=== PATIENT | male | born 1980 | race Two or more races ===

== ENCOUNTER 2017-10-29 16:53 | Inpatient (IN) | payer OTHER ==
--- NOTE | 2017-10-29 17:55 | EDM.PDOC ---
Addendum entered and electronically signed by Laith Tian MD 10/29/17 22 :05: After the discharge was prepared, the patient continued to vomit and complain of pain. He asked if he could be admitted for control of his symptoms. He is aware that we do not have a urologist on staff at this facility. Case discussed with Dr. Estevez at 22:02. She accepts the patient for admission to the Med-Surg floor, on telemetry. Original Note: <aLith Tian - Last Filed: 10/29/17 20:59> ED HPI GENERAL MEDICAL PROBLEM - General Chief Complaint: Abdominal Pain Stated Complaint: ABDOMINAL PAIN Time Seen by Provider: 10/29/17 17:55 - Related Data Allergies Allergy/AdvReac Type Severity Reaction Status Date / Time No Known Allergies Allergy Verified 10/29/17 23:54 Home Meds: Home Meds Tamsulosin HCl [Flomax] 1 tab PO QPM PRN #5 cap.er.24h 10/29/17 [Rx] Course - Vital Signs Last Recorded V/S: Last Vital Signs Temp 37.0 C 10/29/17 17:18 Pulse 82 10/29/17 17:18 Resp 16 10/29/17 17:18 BP 152/95 H 10/29/17 17:18 Pulse Ox 99 10/29/17 17:18 - Orders/Labs/Meds Orders: Active Orders 24 hr Category Date Time Status Strain Urine [RC] ASDIRECTED Care 10/29/17 20:50 Active Abdomen 1V Flat [CR] Stat Exams 10/29/17 18:01 Taken Dextrose 5%-0.9% NaCl [Dextrose 5%-Normal Saline] 1,000 Med 10/29/17 18:00 Active ml IV ASDIRECTED Sodium Chloride 0.9% [Normal Saline] 1,000 ml Med 10/29/17 22:15 Active IV ASDIRECTED Medication Orders Acetaminophen (Tylenol) 650 mg PO Q6H PRN PRN Reason: Pain/Fever Hydrocodone Bitart/Acetaminophen (Jerome 325-5 Mg) 1 tab PO Q6H PRN PRN Reason: Pain Enoxaparin Sodium (Lovenox) 40 mg SUBCUT DAILY [place] Hydromorphone HCl (Dilaudid) 1 mg IVPUSH Q4H PRN PRN Reason: Pain Dextrose/Sodium Chloride (Dextrose 5%-Normal Saline) 1,000 mls @ 999 mls/hr IV ASDIRECTED [place] Last Admin: 10/29/17 18:08 Dose: 999 mls/hr Sodium Chloride (Normal Saline) 1,000 mls @ 150 mls/hr IV ASDIRECTED [place] Last Admin: 10/30/17 04:09 Dose: 150 mls/hr Infusion: 10/30/17 04:09 Dose: 150 mls/hr Admin: 10/29/17 22:21 Dose: 150 mls/hr Sodium Chloride (Normal Saline) 1,000 mls @ 150 mls/hr IV ASDIRECTED [facility] Promethazine HCl 12.5 mg/ (Sodium Chloride) 50.5 mls @ 100 mls/hr IV Q6H [facility] Last Admin: 10/30/17 06:22 Dose: 100 mls/hr Infusion: 10/30/17 01:01 Dose: 100 mls/hr Admin: 10/30/17 00:30 Dose: 100 mls/hr Ketorolac Tromethamine (Toradol) 15 mg IVPUSH Q6H [facility] Stop: 10/31/17 18:02 Last Admin: 10/30/17 06:22 Dose: 15 mg Admin: 10/30/17 00:30 Dose: 15 mg Ondansetron HCl (Zofran) 4 mg IVPUSH Q8H PRN PRN Reason: Nausea Temazepam (Restoril) 15 mg PO BEDTIME PRN PRN Reason: Sleep Labs: Laboratory Tests 10/29/17 10/29/17 10/29/17 Range/Units 17:30 17:30 17:30 WBC 11.98 H (4.23-9.07) K/mm3 RBC 5.58 (4.63-6.08) M/mm3 Hgb 16.4 (13.7-17.5) gm/L Hct 45.8 (40.1-51.0) % MCV 82.1 (79.0-92.2) fl MCH 29.4 (25.7-32.2) pg MCHC 35.8 H (32.2-35.5) g/dl RDW Std Deviation 39.9 (35.1-43.9) fL Plt Count 247 (163-337) K/mm3 MPV 10.3 (9.4-12.3) fl Neutrophils % (Manual) 60 (40-60) % Band Neutrophils % 0 (0-10) % Lymphocytes % (Manual) 33 (20-40) % Atypical Lymphs % 0 % Monocytes % (Manual) 5 (2-10) % Eosinophils % (Manual) 1 (0.8-7.0) % Basophils % (Manual) 1 (0.2-1.2) Platelet Estimate Adequate Plt Morphology Comment Normal RBC Morph Comment Normal Sodium 140 (136-145) mEq/L Potassium 3.6 (3.5-5.1) mEq/L Chloride 105 (98-107) mEq/L Carbon Dioxide 23 (21-32) mEq/L Anion Gap 15.6 H (5-15) BUN 14 (7-18) mg/dL Creatinine 1.0 (0.7-1.3) mg/dL Est Cr Clr Drug Dosing 113.19 mL/min Estimated GFR (MDRD) > 60 (>60) mL/min BUN/Creatinine Ratio 14.0 (14-18) Glucose 128 H (74-106) mg/dL Calcium 8.9 (8.5-10.1) mg/dL Total Bilirubin 0.8 (0.2-1.0) mg/dL AST 35 (15-37) U/L ALT 60 (16-63) U/L Alkaline Phosphatase 56 (46-116) U/L C-Reactive Protein 0.8 (<1.0) mg/dL Total Protein 8.1 (6.4-8.2) g/dl Albumin 3.8 (3.4-5.0) g/dl Globulin 4.3 gm/dL Albumin/Globulin Ratio 0.9 L (1-2) Lipase 129 (73-393) U/L H. pylori IgG Antibody Negative (NEGATIVE) Meds: Medications Generic Name Dose Route Start Last Admin Trade Name Freq PRN Reason Stop Dose Admin Acetaminophen 650 mg 10/29/17 23:29 Tylenol PO Q6H PRN Pain/Fever Hydrocodone Bitart/Acetaminophen 1 tab 10/29/17 23:23 Jerome 325-5 Mg PO Q6H PRN Pain Enoxaparin Sodium 40 mg 10/30/17 09:00 Lovenox SUBCUT DAILY [place] Hydromorphone HCl 1 mg 10/29/17 23:24 Dilaudid IVPUSH Q4H PRN Pain Dextrose/Sodium Chloride 1,000 mls @ 999 mls/hr 10/29/17 18:00 10/29/17 18:08 Dextrose 5%-Normal Saline IV 999 mls/hr ASDIRECTED [place] Administration Sodium Chloride 1,000 mls @ 150 mls/hr 10/29/17 22:15 10/30/17 04:09 Normal Saline IV 150 mls/hr ASDIRECTED [place] Administration Sodium Chloride 1,000 mls @ 150 mls/hr 10/29/17 23:15 Normal Saline IV ASDIRECTED [place] Promethazine HCl 12.5 mg/ 50.5 mls @ 100 mls/hr 10/30/17 00:01 10/30/17 06:22 Sodium Chloride IV 100 mls/hr Q6H [place] Administration Ketorolac Tromethamine 15 mg 10/30/17 00:01 10/30/17 06:22 Toradol IVPUSH 10/31/17 18:02 15 mg Q6H [place] Administration Ondansetron HCl 4 mg 10/29/17 23:28 Zofran IVPUSH Q8H PRN Nausea Temazepam 15 mg 10/29/17 23:25 Restoril PO BEDTIME PRN Sleep Discontinued Medications Generic Name Dose Route Start Last Admin Trade Name Freq PRN Reason Stop Dose Admin Hydromorphone HCl 1 mg 10/29/17 18:00 10/29/17 18:09 Dilaudid IVPUSH 10/29/17 18:01 1 mg ONETIME ONE Administration Hydromorphone HCl 1 mg 10/29/17 18:35 10/29/17 18:48 Dilaudid IVPUSH 10/29/17 18:36 1 mg ONETIME ONE Administration Hydromorphone HCl 1 mg 10/29/17 21:07 10/29/17 21:14 Dilaudid IVPUSH 10/29/17 21:08 1 mg ONETIME ONE Administration Iopamidol 125 ml 10/29/17 19:42 10/29/17 19:55 Isovue-300 (61%) IVPUSH 10/29/17 19:43 125 ml ONETIME ONE Administration Metoclopramide HCl 10 mg 10/29/17 18:00 10/29/17 18:08 Reglan IVPUSH 10/29/17 18:01 10 mg ONETIME ONE Administration Ondansetron HCl 4 mg 10/29/17 19:24 10/29/17 19:30 Zofran IVPUSH 10/29/17 19:25 4 mg ONETIME ONE Administration Ondansetron HCl 4 mg 10/29/17 20:59 10/29/17 21:14 Zofran IVPUSH 10/29/17 21:00 4 mg ONETIME ONE Administration Sodium Chloride 10 ml 10/29/17 19:42 10/29/17 19:55 Saline Flush FLUSH 10/29/17 19:43 10 ml ONETIME ONE Administration Tamsulosin HCl 0.4 mg 10/29/17 20:50 10/29/17 21:14 Flomax PO 10/29/17 20:51 0.4 mg ONETIME ONE Administration - Re-Assessments/Exams Free Text/Narrative Re-Assessment/Exam: 10/29/17 20:[address] Gallegos. CT of the abdomen and pelvis with oral and IV contrast is read by Dr. Walton as: 1. 3.7 mm obstructing stone within the proximal left ureter causing findings as described above. 2. Fatty infiltration within the liver. 3. No other acute abnormality is seen on CT study of the abdomen and pelvis. 10/29/17 20:59 Test results discussed with the patient and his coworker. As above, riley's workup finds the patient has a 3.7 mm stone in the proximal left ureter, which is likely responsible for his symptoms. The remainder of his workup is unremarkable. The patient will be discharged home with [facility]'s prescriptions for Jerome and Zofran. I will a chronically sent a prescription for Flomax. The patient will be given a urine strainer. He will be given a note for work, and a referral to Dr. Stockton, should his pain persist this week. Departure - Departure Time of Disposition: 21:00 Disposition: Admitted As Inpatient 65 Condition: Fair Clinical Impression: Ureterolithiasis - Discharge Information - My Orders Last 24 Hours: My Active Orders 10/29/17 18:00 Dextrose 5%-0.9% NaCl [Dextrose 5%-Normal Saline] 1,000 ml IV ASDIRECTED 10/29/17 18:01 Abdomen 1V Flat [CR] Stat - Assessment/Plan Last 24 Hours: My Active Orders 10/29/17 18:00 Dextrose 5%-0.9% NaCl [Dextrose 5%-Normal Saline] 1,000 ml IV ASDIRECTED 10/29/17 18:01 Abdomen 1V Flat [CR] Stat <Juan Gallegos - Last Filed: 10/30/17 07:33> ED HPI GENERAL MEDICAL PROBLEM - General Source of Information: Reports: Patient History Limitations: Reports: No Limitations - History of Present Illness INITIAL COMMENTS - FREE TEXT/NARRATIVE: 37-year-old male presents to the ED with recurrent severe left upper quadrant abdominal pain that started yesterday afternoon. He had one loose diarrhea stool yesterday without blood. Pain has a strong colicky component but is present at all times. It is felt in the left upper quadrant radiates through to his left flank area. Pain is somewhat improved after vomiting. He vomited since he's been in the ED. Worsened by eating. Again emesis contains no blood. Contains partially digested food and bile salts. Patient has had no previous abdominal surgery. He does not drink alcohol. Takes no street drugs. Onset: Sudden Onset Date: 10/28/17 Onset Time: 14:00 Duration: Hour(s): Location: Reports: Abdomen (Left upper quadrant of the abdomen.) Quality: Reports: Ache, Sharp, Stabbing, Other (Pain is constant with a strong colicky component.) Severity: Severe (When it hits hard it's 10 out of 10. At her after vomiting.) Improves with: Reports: Other (Vomiting) Worsens with: Reports: Eating Context: Denies: Activity, Exercise, Lifting, Sick Contact, Trauma, Other Associated Symptoms: Reports: Loss of Appetite, Nausea/Vomiting (Intermittently probably 7 times since yesterday.). Denies: No Other Symptoms, Confusion, Chest Pain, Cough, cough w sputum, Diaphoresis, Fever/Chills, Headaches, Malaise , Rash, Seizure, Shortness of Breath, Syncope Treatments ADMINISTRATOR SOCIAL WELFARE: Reports: Other (see below) ( None.) Left Upper Abdomen Pain Score (Numeric/FACES): 7 Past Medical History - Past Health History Medical/Surgical History: Denies Medical/Surgical History Social & Family History - Tobacco Use Smoking Status *Q: Never Smoker - Caffeine Use Caffeine Use: Reports: None - Recreational Drug Use Recreational Drug Use: No - Living Situation & Occupation Living situation: Reports: Occupation: Employed ED ROS GENERAL - Review of Systems Review Of Systems: See Below Constitutional: Reports: Chills, Malaise (Mild chills), Decreased Appetite. Denies: Fever, Weakness ( mild), Fatigue, Night Sweats, Diaphoresis, Weight Loss HEENT: Reports: No Symptoms Respiratory: Reports: No Symptoms Cardiovascular: Reports: No Symptoms Endocrine: Reports: No Symptoms GI/Abdominal: Reports: Abdominal Pain (Left upper quadrant constant with a strong colicky component 36 hours), Diarrhea (One loose stool yesterday afternoon without blood.), Nausea, Vomiting (Intermittent nausea and vomiting which improves the pain.). Denies: Constipation : Reports: No Symptoms Musculoskeletal: Reports: No Symptoms Skin: Reports: No Symptoms Neurological: Reports: No Symptoms Psychiatric: Reports: No Symptoms Hematologic/Lymphatic: Reports: No Symptoms Immunologic: Reports: No Symptoms ED EXAM, GI/ABD - Physical Exam Exam: See Below Exam Limited By: No Limitations General Appearance: Alert, WD/WN, No Apparent Distress, Moderate Distress Eyes: Bilateral: Normal Appearance (No jaundice.) Throat/Mouth: Normal Inspection, Normal Lips, Normal Teeth, Normal Oropharynx Head: Atraumatic, Normocephalic Neck: Normal Inspection, Supple, Non-Tender, Full Range of Motion. No: Lymphadenopathy (L), Lymphadenopathy (R) Respiratory/Chest: No Respiratory Distress, Lungs Clear, Normal Breath Sounds, No Accessory Muscle Use Cardiovascular: Normal Peripheral Pulses, Regular Rate, Rhythm, No Edema, No Gallop, No Rub GI/Abdominal Exam: Soft, Non-Tender, No Organomegaly, Abnormal Bowel Sounds ( Hyperactive bowel sounds in all 4 quadrants.). No: Rigid, Rebound, Tender Back Exam: Normal Inspection, Full Range of Motion. No: CVA Tenderness (L), CVA Tenderness (R) Extremities: Normal Inspection, Normal Range of Motion, Non-Tender, No Pedal Edema Neurological: Alert, Oriented, CN II-XII Intact, Normal Cognition, Normal Gait Psychiatric: Normal Affect, Normal Mood Skin Exam: Warm, Dry, Intact, Normal Color, No Rash Course - Orders/Labs/Meds Orders: Active Orders 24 hr Category Date Time Status Strain Urine [RC] ASDIRECTED Care 10/29/17 20:50 Active Abdomen 1V Flat [CR] Stat Exams 10/29/17 18:01 Taken Dextrose 5%-0.9% NaCl [Dextrose 5%-Normal Saline] 1,000 Med 10/29/17 18:00 Active ml IV ASDIRECTED Sodium Chloride 0.9% [Normal Saline] 1,000 ml Med 10/29/17 22:15 Active IV ASDIRECTED Medication Orders Acetaminophen (Tylenol) 650 mg PO Q6H PRN PRN Reason: Pain/Fever Hydrocodone Bitart/Acetaminophen (Jerome 325-5 Mg) 1 tab PO Q6H PRN PRN Reason: Pain Enoxaparin Sodium (Lovenox) 40 mg SUBCUT DAILY [facility] Hydromorphone HCl (Dilaudid) 1 mg IVPUSH Q4H PRN PRN Reason: Pain Dextrose/Sodium Chloride (Dextrose 5%-Normal Saline) 1,000 mls @ 999 mls/hr IV ASDIRECTED [facility] Last Admin: 10/29/17 18:08 Dose: 999 mls/hr Sodium Chloride (Normal Saline) 1,000 mls @ 150 mls/hr IV ASDIRECTED [facility] Last Admin: 10/30/17 04:09 Dose: 150 mls/hr Infusion: 10/30/17 04:09 Dose: 150 mls/hr Admin: 10/29/17 22:21 Dose: 150 mls/hr Sodium Chloride (Normal Saline) 1,000 mls @ 150 mls/hr IV ASDIRECTED [facility] Promethazine HCl 12.5 mg/ (Sodium Chloride) 50.5 mls @ 100 mls/hr IV Q6H [facility] Last Admin: 10/30/17 06:22 Dose: 100 mls/hr Infusion: 10/30/17 01:01 Dose: 100 mls/hr Admin: 10/30/17 00:30 Dose: 100 mls/hr Ketorolac Tromethamine (Toradol) 15 mg IVPUSH Q6H [facility] Stop: 10/31/17 18:02 Last Admin: 10/30/17 06:22 Dose: 15 mg Admin: 10/30/17 00:30 Dose: 15 mg Ondansetron HCl (Zofran) 4 mg IVPUSH Q8H PRN PRN Reason: Nausea Temazepam (Restoril) 15 mg PO BEDTIME PRN PRN Reason: Sleep Labs: Laboratory Tests 10/29/17 10/29/17 10/29/17 Range/Units 17:30 17:30 17:30 WBC 11.98 H (4.23-9.07) K/mm3 RBC 5.58 (4.63-6.08) M/mm3 Hgb 16.4 (13.7-17.5) gm/L Hct 45.8 (40.1-51.0) % MCV 82.1 (79.0-92.2) fl MCH 29.4 (25.7-32.2) pg MCHC 35.8 H (32.2-35.5) g/dl RDW Std Deviation 39.9 (35.1-43.9) fL Plt Count 247 (163-337) K/mm3 MPV 10.3 (9.4-12.3) fl Neutrophils % (Manual) 60 (40-60) % Band Neutrophils % 0 (0-10) % Lymphocytes % (Manual) 33 (20-40) % Atypical Lymphs % 0 % Monocytes % (Manual) 5 (2-10) % Eosinophils % (Manual) 1 (0.8-7.0) % Basophils % (Manual) 1 (0.2-1.2) Platelet Estimate Adequate Plt Morphology Comment Normal RBC Morph Comment Normal Sodium 140 (136-145) mEq/L Potassium 3.6 (3.5-5.1) mEq/L Chloride 105 (98-107) mEq/L Carbon Dioxide 23 (21-32) mEq/L Anion Gap 15.6 H (5-15) BUN 14 (7-18) mg/dL Creatinine 1.0 (0.7-1.3) mg/dL Est Cr Clr Drug Dosing 113.19 mL/min Estimated GFR (MDRD) > 60 (>60) mL/min BUN/Creatinine Ratio 14.0 (14-18) Glucose 128 H (74-106) mg/dL Calcium 8.9 (8.5-10.1) mg/dL Total Bilirubin 0.8 (0.2-1.0) mg/dL AST 35 (15-37) U/L ALT 60 (16-63) U/L Alkaline Phosphatase 56 (46-116) U/L C-Reactive Protein 0.8 (<1.0) mg/dL Total Protein 8.1 (6.4-8.2) g/dl Albumin 3.8 (3.4-5.0) g/dl Globulin 4.3 gm/dL Albumin/Globulin Ratio 0.9 L (1-2) Lipase 129 (73-393) U/L H. pylori IgG Antibody Negative (NEGATIVE) Meds: Medications Generic Name Dose Route Start Last Admin Trade Name Freq PRN Reason Stop Dose Admin Acetaminophen 650 mg 10/29/17 23:29 Tylenol PO Q6H PRN Pain/Fever Hydrocodone Bitart/Acetaminophen 1 tab 10/29/17 23:23 Jerome 325-5 Mg PO Q6H PRN Pain Enoxaparin Sodium 40 mg 10/30/17 09:00 Lovenox SUBCUT DAILY [place] Hydromorphone HCl 1 mg 10/29/17 23:24 Dilaudid IVPUSH Q4H PRN Pain Dextrose/Sodium Chloride 1,000 mls @ 999 mls/hr 10/29/17 18:00 10/29/17 18:08 Dextrose 5%-Normal Saline IV 999 mls/hr ASDIRECTED [place] Administration Sodium Chloride 1,000 mls @ 150 mls/hr 10/29/17 22:15 10/30/17 04:09 Normal Saline IV 150 mls/hr ASDIRECTED [place] Administration Sodium Chloride 1,000 mls @ 150 mls/hr 10/29/17 23:15 Normal Saline IV ASDIRECTED [place] Promethazine HCl 12.5 mg/ 50.5 mls @ 100 mls/hr 10/30/17 00:01 10/30/17 06:22 Sodium Chloride IV 100 mls/hr Q6H [place] Administration Ketorolac Tromethamine 15 mg 10/30/17 00:01 10/30/17 06:22 Toradol IVPUSH 10/31/17 18:02 15 mg Q6H [place] Administration Ondansetron HCl 4 mg 10/29/17 23:28 Zofran IVPUSH Q8H PRN Nausea Temazepam 15 mg 10/29/17 23:25 Restoril PO BEDTIME PRN Sleep Discontinued Medications Generic Name Dose Route Start Last Admin Trade Name Freq PRN Reason Stop Dose Admin Hydromorphone HCl 1 mg 10/29/17 18:00 10/29/17 18:09 Dilaudid IVPUSH 10/29/17 18:01 1 mg ONETIME ONE Administration Hydromorphone HCl 1 mg 10/29/17 18:35 10/29/17 18:48 Dilaudid IVPUSH 10/29/17 18:36 1 mg ONETIME ONE Administration Hydromorphone HCl 1 mg 10/29/17 21:07 10/29/17 21:14 Dilaudid IVPUSH 10/29/17 21:08 1 mg ONETIME ONE Administration Iopamidol 125 ml 10/29/17 19:42 10/29/17 19:55 Isovue-300 (61%) IVPUSH 10/29/17 19:43 125 ml ONETIME ONE Administration Metoclopramide HCl 10 mg 10/29/17 18:00 10/29/17 18:08 Reglan IVPUSH 10/29/17 18:01 10 mg ONETIME ONE Administration Ondansetron HCl 4 mg 10/29/17 19:24 10/29/17 19:30 Zofran IVPUSH 10/29/17 19:25 4 mg ONETIME ONE Administration Ondansetron HCl 4 mg 10/29/17 20:59 10/29/17 21:14 Zofran IVPUSH 10/29/17 21:00 4 mg ONETIME ONE Administration Sodium Chloride 10 ml 10/29/17 19:42 10/29/17 19:55 Saline Flush FLUSH 10/29/17 19:43 10 ml ONETIME ONE Administration Tamsulosin HCl 0.4 mg 10/29/17 20:50 10/29/17 21:14 Flomax PO 10/29/17 20:51 0.4 mg ONETIME ONE Administration - Radiology Interpretation Free Text/Narrative:: 37-year-old male presents the ED with severe left upper quadrant abdominal pain that comes and goes. I.e. there is a constant component to the pain but it worsens intermittently I strong colicky component. This will often produces nausea and vomiting. Yesterday afternoon he had one loose watery stool. No blood noted. He's had several bouts of vomiting that contained partially digested food and bile emesis. No blood. Emanation reveals hyperactive bowel sounds in all 4 quadrants. Minimal guarding left upper quadrant with no rebound or signs of peritonitis. No CVA tenderness on the left side. Plan IV D5 normal saline at open since he has not had much to eat or drink per day and a half. Dilaudid 1 mg IV with Reglan 10 mg IV for pain and nausea relief. Routine labs and urinalysis to be collected and one view of the abdomen will be done. - Re-Assessments/Exams Free Text/Narrative Re-Assessment/Exam: 10/29/17 18:31 White blood cell count is mildly elevated at 11.98 with normal differential. Hemoglobin is 16.4 with hematocrit of 45.8 which is suggestive of mild hemoconcentration. Platelet count is 247,000. Sodium is 140. Potassium 3.6. Chloride normal at 105. Bicarbonate 23. And a gap is 15.6. BUN is 14. Creatinine 1.0. EGFR greater than 60. Glucose is 128. Calcium is 8.9. Bilirubin is 0.8. AST is 35. ELT is 60. Alk phosphatase 56. C-reactive protein 0.8. Lipase is normal at 129. KUB reveals a stool plug in the right hemicolon. Large amount of gas distending the transverse colon without any signs of obstruction. The descending colon and rectal vault appeared to be empty. Therefore appears to be severe intestinal colic causing his abdominal pain which goes along with his history. The pain seems to come first that then precipitates his nausea and vomiting. 10/29/17 18:46 patient is still experiencing significant upper abdominal pain I strong colicky component pain primarily epigastric left upper quadrant. I will therefore repeat Dilaudid 1 mg IV. His pain is bad enough to be worrisome for some other pathology causing his pain that is not apparent on x-ray. I suspect it is all intestinal colic from right hemicolon constipation. I'm therefore going to order CT of his abdomen with oral and IV contrast to rule out any sinister pathology involving his left kidney or spleen or gastric volvulus.. 10/29/17 19:24 patient started vomiting and up oral contrast after only taking about a half bottle. Given Zofran 4 mg IV for further nausea relief. We will abandon oral contrast media and just use IV contrast to visualize his abdomen and pelvis. Opening is enough contrast in the stomach left to tell us for sure that there is no gastric volvulus. Care will be turned over to Dr. Tian as it is change of shift. He will monitor for him after CT has completed and decide on a disposition. Free Text/Narrative Re-Assessment/Exam: 23:00: Patient was plan for discharge after discovery of a 3.7 mm stone in his proximal left ureter as the cause of his colicky pain. Pelvis he Vomiting from the severity of the pain. Therefore finally decision was to admit him admit him to hospital under the care of Dr. Estevez hospitalist for pain management at least overnight. Departure - Departure Time of Disposition: 23:00 - My Orders Last 24 Hours: My Active Orders 10/29/17 18:00 Dextrose 5%-0.9% NaCl [Dextrose 5%-Normal Saline] 1,000 ml IV ASDIRECTED 10/29/17 18:01 Abdomen 1V Flat [CR] Stat - Assessment/Plan Last 24 Hours: My Active Orders 10/29/17 18:00 Dextrose 5%-0.9% NaCl [Dextrose 5%-Normal Saline] 1,000 ml IV ASDIRECTED 10/29/17 18:01 Abdomen 1V Flat [CR] Stat
[2017-10-29] MEDS ORDERED: HYDROmorphone 1 MG/ML Syringe IVPUSH ONE ×3 (18:00→21:07)
[2017-10-29] MEDS ORDERED: Dextrose 5%-0.9% NaCl 1,000 ML IV SCH (18:00)
[2017-10-29] MEDS ORDERED: Metoclopramide 10 MG/2 ML SDV IVPUSH ONE (18:00)
[2017-10-29] MEDS ORDERED: Ondansetron 4 MG/2 ML SDV IVPUSH ONE ×2 (19:24→20:59)
[2017-10-29] MEDS ORDERED: Sodium Chloride 0.9% 10 ML Syringe FLUSH ONE (19:42)
[2017-10-29] MEDS ORDERED: Iopamidol 612 MG/ML 150 ML Bottle IVPUSH ONE (19:42)
--- NOTE | 2017-10-29 20:20 | CT ---
CT abdomen and pelvis Technique: Multiple axial sections were obtained from above the dome of the diaphragm inferiorly through the pubic symphysis. Intravenous contrast and oral contrast has been given. Findings: Slightly delayed enhancement of the left kidney is seen. Left kidney is also mildly swollen with slight surrounding inflammatory change. Left ureter is mildly prominent. These findings are caused by a proximal left ureteral obstructing stone measuring approximately 3.7 mm. No additional calcifications are seen along the course of the ureters. Small portion of the visualized lung bases shows nothing acute. Diffuse fatty infiltration is seen within the liver. Spleen appears normal. Adrenal glands show no nodule. Pancreas is within normal limits. Aorta shows no aneurysmal dilatation. No retroperitoneal adenopathy or mesenteric abnormalities are seen. Appendix is seen which is normal. No pelvic mass or adenopathy is identified. Bone window settings were reviewed which shows no acute osseous abnormality. Impression: 1. 3.7 mm obstructing stone within the proximal left ureter causing findings as described above. 2. Fatty infiltration within the liver. 3. No other acute abnormality is seen on CT study of the abdomen and pelvis. Diagnostic code #3
[2017-10-29] MEDS ORDERED: Tamsulosin 0.4 MG Cap.ER PO ONE (20:50)
[2017-10-29] MEDS: Sodium Chloride 0.9% 1,000 ML IV SCH (22:21)
[2017-10-29] MEDS ORDERED: Sodium Chloride 0.9% 1,000 ML IV SCH (23:15)
[2017-10-29] MEDS ORDERED: Acetaminophen/HYDROcodone 325-5 MG Tab PO PRN (23:23)
[2017-10-29] MEDS ORDERED: HYDROmorphone 1 MG/ML Syringe IVPUSH PRN (23:24)
[2017-10-29] MEDS ORDERED: Temazepam 15 MG Cap PO PRN (23:25)
[2017-10-29] MEDS ORDERED: Ondansetron 4 MG/2 ML SDV IVPUSH PRN (23:28)
[2017-10-29] MEDS ORDERED: Acetaminophen 325 MG Tab PO PRN (23:29)
[2017-10-30] MEDS: Promethazine 12.5 MG in Sodium Chloride 0.9% 50 ML IV SCH ×4 (00:30→17:47)
[2017-10-30] MEDS: Ketorolac 15 MG/ML SDV IVPUSH SCH ×4 (00:30→17:45)
[2017-10-30] MEDS: Sodium Chloride 0.9% 1,000 ML IV SCH ×3 (04:09→19:49)
--- NOTE | 2017-10-30 10:22 | PCM.HP ---
H&P History of Present Illness - General Date of Service: 10/30/17 Admit Problem/Dx: Admission Diagnosis/Problem Admission Diagnosis/Problem Vomiting Source of Information: Patient, Provider History Limitations: Reports: No Limitations - History of Present Illness Initial Comments - Free Text/Narative: 37 year old male with left sided abdominal pain and flank pain, additionally has had nausea and vomiting. He has required IV Dilaudid for pain control in the ED with marginal success. He had been scheduled for DC but has failed pain treatment with bouts of nausea and vomiting during treatment. He will be admitted for failed pain management therapy for ureterolithasis; intractable nausea and vomiting precipitated by pain management and oral contrast. Onset of Symptoms: Reports: Sudden Symptom Onset Date: 10/29/17 Duration of Symptoms: Reports: Day(s):, Getting Worse Location: Reports: Abdomen, Back Quality: Reports: Sharp, Stabbing Severity: Moderate Improves with: Reports: Medication Worsens with: Reports: None Associated Symptoms: Reports: Loss of Appetite, Malaise, Nausea/Vomiting Left Upper Abdomen Pain Score (Numeric/FACES): 7 - Related Data Allergies/Adverse Reactions: Allergies Allergy/AdvReac Type Severity Reaction Status Date / Time No Known Allergies Allergy Verified 10/29/17 23:54 Home Medications: Home Meds Tamsulosin HCl [Flomax] 1 tab PO QPM PRN #5 cap.er.24h 10/29/17 [Rx] Past Medical History - Past Health History Medical/Surgical History: Denies Medical/Surgical History HEENT History: Reports: Other (See Below) Other HEENT History: wears contacts, broke his nose many years ago...did not require surgery Other Cardiovascular History: states he has an irregular heart rate. Gastrointestinal History: Reports: None Genitourinary History: Reports: Renal Calculus Other Genitourinary History: 10/29/17 admitted to hospital for kidney stone Musculoskeletal History: Reports: Other (See Below) Other Musculoskeletal History: has had a broken right foot with no surgery Endocrine/Metabolic History: Reports: Obesity/BMI 30+ - Infectious Disease History Infectious Disease History: Reports: Influenza - Past Surgical History HEENT Surgical History: Reports: None Cardiovascular Surgical History: Reports: None GI Surgical History: Reports: None Male Surgical History: Reports: None Endocrine Surgical History: Reports: None Musculoskeletal Surgical History: Reports: None Social & Family History - Family History Family Medical History: Noncontributory - Tobacco Use Smoking Status *Q: Never Smoker Second Hand Smoke Exposure: No - Caffeine Use Caffeine Use: Reports: None Other Caffeine Use: rare occassion has a soda - Recreational Drug Use Recreational Drug Use: No - Living Situation & Occupation Living situation: Reports: Occupation: Employed H&P Review of Systems - Review of Systems: Review Of Systems: See Below General: Reports: Malaise, Weakness, Decreased Appetite HEENT: Reports: No Symptoms Pulmonary: Reports: No Symptoms Cardiovascular: Reports: No Symptoms Gastrointestinal: Reports: Abdominal Pain, Nausea, Vomiting Genitourinary: Reports: Flank Pain (left, stabbing sensation) Musculoskeletal: Reports: No Symptoms Skin: Reports: No Symptoms Psychiatric: Reports: No Symptoms Neurological: Reports: No Symptoms Hematologic/Lymphatic: Reports: No Symptoms Immunologic: Reports: No Symptoms Exam - Exam Exam: See Below - Vital Signs Vital Signs: Last Vital Signs Temp 36.9 C 10/30/17 07:57 Pulse 69 10/30/17 07:57 Resp 20 10/30/17 07:57 BP 120/76 10/30/17 07:57 Pulse Ox 97 10/30/17 07:57 Weight: 122.833 kg - Exam General: Alert, Oriented, Cooperative HEENT: Conjunctiva Clear, EOMI, Mucosa Moist & [place], Nares Patent, Normal Nasal Septum, Pupils Equal, Pupils Reactive, PERRLA Neck: Supple, Trachea Midline Lungs: Clear to Auscultation, Normal Respiratory Effort Cardiovascular: Regular Rate, Regular Rhythm GI/Abdominal Exam: Normal Bowel Sounds, Soft, No Organomegaly, No Distention, Tender (LUQ) (Male) Exam: Deferred Rectal (Males) Exam: Deferred Back Exam: Normal Inspection, Paraspinal Tenderness (no), Vertebral Tenderness ( no) Extremities: Normal Inspection, Normal Range of Motion, No Pedal Edema, Slow Capillary Refill Skin: Warm Neurological: Cranial Nerves Intact, Normal Gait, Normal Speech Neuro Extensive - Mental Status: Alert, Oriented x3, Normal Mood/Affect, Normal Cognition, Memory Intact Neuro Extensive - Motor, Sensory, Reflexes: CN II-XII Intact Psychiatric: Alert, Normal Affect, Normal Mood - Patient Data Lab Results Last 24 hrs: Laboratory Results - last 24 hr 01/01/18 01/01/18 01/01/18 Range/Units 05:49 05:49 05:49 WBC 13.70 H (4.23-9.07) K/mm3 RBC 4.98 (4.63-6.08) M/mm3 Hgb 14.7 (13.7-17.5) gm/L Hct 42.3 (40.1-51.0) % MCV 84.9 (79.0-92.2) fl MCH 29.5 (25.7-32.2) pg MCHC 34.8 (32.2-35.5) g/dl RDW Std Deviation 41.8 (35.1-43.9) fL Plt Count 226 (163-337) K/mm3 MPV 10.0 (9.4-12.3) fl Neut % (Auto) 75.6 H (34.0-67.9) % Lymph % (Auto) 17.7 L (21.8-53.1) % [place] % (Auto) 6.4 (5.3-12.2) % Eos % (Auto) 0.1 L (0.8-7.0) Baso % (Auto) 0.1 (0.1-1.2) % Neut # (Auto) 10.35 H (1.78-5.38) K/mm3 Lymph # (Auto) 2.42 (1.32-3.57) K/mm3 [place] # (Auto) 0.87 H (0.30-0.82) K/mm3 Eos # (Auto) 0.02 L (0.04-0.54) K/mm3 Baso # (Auto) 0.02 (0.01-0.08) K/mm3 Sodium 142 (136-145) mEq/L Potassium 4.7 (3.5-5.1) mEq/L Chloride 107 (98-107) mEq/L Carbon Dioxide 26 (21-32) mEq/L Anion Gap 13.7 (5-15) BUN 15 (7-18) mg/dL Creatinine 1.2 (0.7-1.3) mg/dL Est Cr Clr Drug Dosing 94.33 mL/min Estimated GFR (MDRD) > 60 (>60) mL/min BUN/Creatinine Ratio 12.5 L (14-18) Glucose 110 H (74-106) mg/dL Calcium 8.3 L (8.5-10.1) mg/dL C-Reactive Protein 2.4 H* (<1.0) mg/dL Result Diagrams: 10/30/17 05:49 10/30/17 05:49 *Q Meaningful Use (ADM) - VTE *Q VTE Criteria *Q: - Stroke *Q Stroke Criteria *Q: - AMI *Q AMI Criteria *Q: - Problem List (1) Renal colic on left side SNOMED Code(s): 3458581 ICD Code: N23 - UNSPECIFIED RENAL COLIC Status: Acute Current Visit: Yes (2) Intractable pain SNOMED Code(s): 87475909 ICD Code: R52 - PAIN, UNSPECIFIED Status: Acute Current Visit: Yes (3) Ureterolithiasis SNOMED Code(s): 69817522 ICD Code: N20.1 - CALCULUS OF URETER Status: Acute Current Visit: Yes Problem List Initiated/Reviewed/Updated: Yes Orders Last 24hrs: Active Orders 24 hr Category Date Time Status Patient Status [ADT] Routine ADT 10/29/17 22:45 Active Communication Order [RC] Care 10/29/17 23:21 Active Clear Liquid Diet [DIET] Diet 10/30/17 Breakfast Active Acetaminophen [Tylenol] Med 10/29/17 23:29 Active 650 mg PO Q6H PRN Acetaminophen/HYDROcodone [[place] 325-5 MG] Med 10/29/17 23:23 Active 1 tab PO Q6H PRN Enoxaparin [Lovenox] Med 10/30/17 09:00 Active 40 mg SUBCUT DAILY HYDROmorphone [Dilaudid] Med 10/29/17 23:24 Active 1 mg IVPUSH Q4H PRN Ketorolac [Toradol] Med 10/30/17 00:01 Active 15 mg IVPUSH Q6H Ondansetron [Zofran] Med 10/29/17 23:28 Active 4 mg IVPUSH Q8H PRN Promethazine [Phenergan] 12.5 mg Med 10/30/17 00:01 Active Sodium Chloride 0.9% [Normal Saline] 50 ml IV Q6H Sodium Chloride 0.9% [Normal Saline] 1,000 ml Med 10/29/17 23:15 Active IV ASDIRECTED Temazepam [Restoril] Med 10/29/17 23:25 Active 15 mg PO BEDTIME PRN Code Status [Resuscitation Status] Routine Resus Stat 10/29/17 23:33 Ordered Medication Orders Acetaminophen (Tylenol) 650 mg PO Q6H PRN PRN Reason: Pain/Fever Hydrocodone Bitart/Acetaminophen ([place] 325-5 Mg) 1 tab PO Q6H PRN PRN Reason: Pain Enoxaparin Sodium (Lovenox) 40 mg SUBCUT DAILY [place] Hydromorphone HCl (Dilaudid) 1 mg IVPUSH Q4H PRN PRN Reason: Pain Dextrose/Sodium Chloride (Dextrose 5%-Normal Saline) 1,000 mls @ 999 mls/hr IV ASDIRECTED [facility] Last Admin: 10/29/17 18:08 Dose: 999 mls/hr Sodium Chloride (Normal Saline) 1,000 mls @ 150 mls/hr IV ASDIRECTED [facility] Last Admin: 10/30/17 04:09 Dose: 150 mls/hr Infusion: 10/30/17 04:09 Dose: 150 mls/hr Admin: 10/29/17 22:21 Dose: 150 mls/hr Sodium Chloride (Normal Saline) 1,000 mls @ 150 mls/hr IV ASDIRECTED [facility] Promethazine HCl 12.5 mg/ (Sodium Chloride) 50.5 mls @ 100 mls/hr IV Q6H [facility] Last Admin: 10/30/17 06:22 Dose: 100 mls/hr Infusion: 10/30/17 01:01 Dose: 100 mls/hr Admin: 10/30/17 00:30 Dose: 100 mls/hr Ketorolac Tromethamine (Toradol) 15 mg IVPUSH Q6H [facility] Stop: 10/31/17 18:02 Last Admin: 10/30/17 06:22 Dose: 15 mg Admin: 10/30/17 00:30 Dose: 15 mg Ondansetron HCl (Zofran) 4 mg IVPUSH Q8H PRN PRN Reason: Nausea Temazepam (Restoril) 15 mg PO BEDTIME PRN PRN Reason: Sleep Assessment/Plan Comment:: Impression: Uretherolithiasis Renal Colic, left sided Intractable pain Dehydration with N and V Chronic Obesity Plan: IVF IV Toradol/non opiate analgesics, ATC/prn Antiemetics ATC/prn Clear liquid diet advance as tolerated. DVT/GI prophylaxis DC 1/2/18 DC meds for pain, nausea as well as Flomax as prescribed earlier before a change in admission status
[2017-10-30] MEDS: Enoxaparin 40 MG/0.4 ML Syringe SUBCUT SCH (11:25)
[2017-10-31] MEDS: Ketorolac 15 MG/ML SDV IVPUSH SCH ×2 (00:14→06:43)
[2017-10-31] MEDS: Promethazine 12.5 MG in Sodium Chloride 0.9% 50 ML IV SCH (00:28)
[2017-10-31] MEDS: Sodium Chloride 0.9% 1,000 ML IV SCH (02:25)
--- NOTE | 2017-10-31 08:02 | CR ---
Abdomen: Supine view of the abdomen was obtained. Comparison: No previous abdominal x-ray. Calcifications are seen within the pelvis which are compatible with phleboliths. Small calcification is seen inferior to the L3 transverse process which correlates to a ureteral stone on subsequent CT exam. Bowel gas pattern is normal. Bony structures are unremarkable. Impression: 1. Small calcification inferior to the left L3 transverse process correlating to an obstructing ureteral stone on subsequent CT exam. Diagnostic code #3
--- NOTE | 2017-10-31 08:51 | PCM.DCSUM1 ---
Discharge Summary - Hospital Course Free Text/Narrative:: 37 year old male with left sided abdominal pain and flank pain, additionally has had nausea and vomiting related to 3.7cm ureteral stone. He has required IV Dilaudid for pain control in the ED with marginal success. He had been scheduled for DC but has failed pain treatment with bouts of nausea and vomiting during treatment. He will be admitted for failed pain management therapy for ureterolithasis; intractable nausea and vomiting precipitated by pain management and oral contrast. - Discharge Data Discharge Date: 10/31/17 (admit date 10/30/17) Discharge Disposition: Home, Self-Care 01 Condition: Good - Patient Summary/Data Operative Procedure(s) Performed: None Complications: None Consults: None Labs Pending at D/C: None Recommended Follow-up Testing/Procedures: Follow up with Urology for ureteral stone (kidney stone) Follow up with PCP within 5-7 days of discharge Motrin 600-800mg 3 times daily for pain and inflammation, flomax twice daily to help ureter pain and spasticity Push fluids; strain urine (please send home with strainer), avoid soda and alcohol. Planned Operative Procedure(s) after DC: None Hospital Course: Impression: Uretherolithiasis Renal Colic, left sided Intractable pain Dehydration with N and V Chronic Obesity Plan: IVF IV Toradol/non opiate analgesics, ATC/prn Antiemetics ATC/prn Clear liquid diet advance as tolerated. DVT/GI prophylaxis DC 10/31/17 DC meds for pain, nausea as well as Flomax as prescribed earlier before a change in admission status - Patient Instructions Diet: Usual Diet as Tolerated, Drink 8-10+ Glasses/Day, No Alcoholic Beverages Activity: As Tolerated Driving: Do Not Drive (narcotic free for [address]) Showering/Bathing: May Shower Notify Provider of: Fever, Increased Pain, Nausea and/or Vomiting - Discharge Plan Prescriptions/Med Rec: Tamsulosin [Flomax] 0.4 mg PO BIDPC #30 cap.er Home Medications: Home Meds Tamsulosin [Flomax] 0.4 mg PO BIDPC #30 cap.er 10/31/17 [Rx] Patient Handouts: Kidney Stones, [id number] Forms: ED Return to Work/School Form Referrals: Donal Stockton MD [Physician] - PCP,None [Primary Care Provider] - - Discharge Summary/Plan Comment DC Time >30 min.: Yes (40 min) - General Info Date of Service: 10/31/17 (admit date 10/30/16) Functional Status: Reports: Pain Controlled, Tolerating Diet, Ambulating, Urinating - Review of Systems General: Reports: No Symptoms. Denies: Fever HEENT: Reports: No Symptoms Pulmonary: Reports: No Symptoms Cardiovascular: Reports: No Symptoms Gastrointestinal: Reports: No Symptoms. Denies: Diarrhea, Nausea, Vomiting Genitourinary: Reports: Flank Pain. Denies: Frequency, Hematuria, Retention Musculoskeletal: Reports: No Symptoms Skin: Reports: No Symptoms Neurological: Reports: No Symptoms Psychiatric: Reports: No Symptoms - Patient Data Vitals - Most Recent: Last Vital Signs Temp 97.5 F 10/31/17 03:53 Pulse 55 L 10/31/17 03:53 Resp 18 10/31/17 03:53 BP 123/72 10/31/17 03:53 Pulse Ox 95 10/31/17 03:53 Weight - Most Recent: 277 lb 4.8 oz I&O - Last 24 hours: Intake & Output 10/30/17 10/31/17 10/31/17 22:59 06:59 14:59 Intake Total 3014 4325 Balance 3014 4325 Lab Results - Last 24 hrs: Laboratory Results - last 24 hr 10/31/17 10/31/17 Range/Units 04:50 05:43 WBC 8.36 (4.23-9.07) K/mm3 RBC 4.70 (4.63-6.08) M/mm3 Hgb 13.6 L (13.7-17.5) gm/L Hct 40.4 (40.1-51.0) % MCV 86.0 (79.0-92.2) fl MCH 28.9 (25.7-32.2) pg MCHC 33.7 (32.2-35.5) g/dl RDW Std Deviation 41.8 (35.1-43.9) fL Plt Count 203 (163-337) K/mm3 MPV 10.4 (9.4-12.3) fl Neut % (Auto) 52.5 (34.0-67.9) % Lymph % (Auto) 38.3 (21.8-53.1) % [place] % (Auto) 6.7 (5.3-12.2) % Eos % (Auto) 2.3 (0.8-7.0) Baso % (Auto) 0.1 (0.1-1.2) % Neut # (Auto) 4.39 (1.78-5.38) K/mm3 Lymph # (Auto) 3.20 (1.32-3.57) K/mm3 [place] # (Auto) 0.56 (0.30-0.82) K/mm3 Eos # (Auto) 0.19 (0.04-0.54) K/mm3 Baso # (Auto) 0.01 (0.01-0.08) K/mm3 Sodium 145 (136-145) mEq/L Potassium 4.3 (3.5-5.1) mEq/L Chloride 110 H (98-107) mEq/L Carbon Dioxide 27 (21-32) mEq/L Anion Gap 12.3 (5-15) BUN 11 (7-18) mg/dL Creatinine 0.9 (0.7-1.3) mg/dL Est Cr Clr Drug Dosing 125.77 mL/min Estimated GFR (MDRD) > 60 (>60) mL/min BUN/Creatinine Ratio 12.2 L (14-18) Glucose 86 (74-106) mg/dL Calcium 8.1 L (8.5-10.1) mg/dL C-Reactive Protein 3.6 H* (<1.0) mg/dL Med Orders - Current: Current Medications Acetaminophen (Tylenol) 650 mg PO Q6H PRN PRN Reason: Pain/Fever Enoxaparin Sodium (Lovenox) 40 mg SUBCUT DAILY [facility] Last Admin: 10/30/17 11:25 Dose: 40 mg Hydromorphone HCl (Dilaudid) 1 mg IVPUSH Q4H PRN PRN Reason: Pain Sodium Chloride (Normal Saline) 1,000 mls @ 150 mls/hr IV ASDIRECTED [facility] Last Admin: 10/31/17 02:25 Dose: 150 mls/hr Ketorolac Tromethamine (Toradol) 15 mg IVPUSH Q6H [facility] Stop: 10/31/17 18:02 Last Admin: 10/31/17 06:43 Dose: 15 mg Ondansetron HCl (Zofran) 4 mg IVPUSH Q8H PRN PRN Reason: Nausea Tamsulosin HCl (Flomax) 0.4 mg PO BIDPC [place] Temazepam (Restoril) 15 mg PO BEDTIME PRN PRN Reason: Sleep Discontinued Medications Hydrocodone Bitart/Acetaminophen ([place] 325-5 Mg) 1 tab PO Q6H PRN PRN Reason: Pain Hydromorphone HCl (Dilaudid) 1 mg IVPUSH ONETIME ONE Stop: 10/29/17 18:01 Last Admin: 10/29/17 18:09 Dose: 1 mg Hydromorphone HCl (Dilaudid) 1 mg IVPUSH ONETIME ONE Stop: 10/29/17 18:36 Last Admin: 10/29/17 18:48 Dose: 1 mg Hydromorphone HCl (Dilaudid) 1 mg IVPUSH ONETIME ONE Stop: 10/29/17 21:08 Last Admin: 10/29/17 21:14 Dose: 1 mg Dextrose/Sodium Chloride (Dextrose 5%-Normal Saline) 1,000 mls @ 999 mls/hr IV ASDIRECTED [facility] Last Admin: 10/29/17 18:08 Dose: 999 mls/hr Sodium Chloride (Normal Saline) 1,000 mls @ 150 mls/hr IV ASDIRECTED [facility] Promethazine HCl 12.5 mg/ (Sodium Chloride) 50.5 mls @ 100 mls/hr IV Q6H [facility] Stop: 10/31/17 03:49 Last Admin: 10/31/17 00:28 Dose: 100 mls/hr Iopamidol (Isovue-300 (61%)) 125 ml IVPUSH ONETIME ONE Stop: 10/29/17 19:43 Last Admin: 10/29/17 19:55 Dose: 125 ml Metoclopramide HCl (Reglan) 10 mg IVPUSH ONETIME ONE Stop: 10/29/17 18:01 Last Admin: 10/29/17 18:08 Dose: 10 mg Ondansetron HCl (Zofran) 4 mg IVPUSH ONETIME ONE Stop: 10/29/17 19:25 Last Admin: 10/29/17 19:30 Dose: 4 mg Ondansetron HCl (Zofran) 4 mg IVPUSH ONETIME ONE Stop: 10/29/17 21:00 Last Admin: 10/29/17 21:14 Dose: 4 mg Sodium Chloride (Saline Flush) 10 ml FLUSH ONETIME ONE Stop: 10/29/17 19:43 Last Admin: 10/29/17 19:55 Dose: 10 ml Tamsulosin HCl (Flomax) 0.4 mg PO ONETIME ONE Stop: 10/29/17 20:51 Last Admin: 10/29/17 21:14 Dose: 0.4 mg - Exam Quality Assessment: Reports: DVT Prophylaxis General: Reports: Alert, Oriented, Cooperative, No Acute Distress HEENT: Reports: Pupils Equal, EOMI, Mucous Membr. Moist/[place] Neck: Reports: Supple Lungs: Reports: Clear to Auscultation, Normal Respiratory Effort Cardiovascular: Reports: Regular Rate, Regular Rhythm GI/Abdominal Exam: Normal Bowel Sounds, Soft, Non-Tender (Male) Exam: Deferred Rectal (Males) Exam: Deferred Extremities: Normal Inspection, No Pedal Edema, Normal Capillary Refill Neurological: Reports: No New Focal Deficit Psy/Mental Status: Reports: Alert, Normal Affect, Normal Mood *Q Meaningful Use (DIS) - VTE *Q VTE Criteria *Q: - Stroke *Q Stroke Criteria *Q: - AMI *Q AMI Criteria *Q:
[2017-10-31] MEDS ORDERED: Tamsulosin 0.4 MG Cap.ER PO SCH (09:00)
[2017-10-31] MEDS: Enoxaparin 40 MG/0.4 ML Syringe SUBCUT SCH (09:05)
== END 2017-10-31 11:25 | disposition home or self-care (01) | DRG 694 ==
LOC: JD.ED 16:53 → JD.MS 22:25
PROVIDERS: ADMIT Internal Medicine Cardiovascular Disease; ATTEND Internal Medicine Cardiovascular Disease
DX: N23 Unspecified renal colic (principal); N20.1 Calculus of ureter; R11.2 Nausea with vomiting, unspecified; E86.0 Dehydration; E66.9 Obesity, unspecified; Z68.35 Body mass index [BMI] 35.0-35.9, adult
CPT/HCPCS: 36415; 74000; 74000-26; 74177; 74177-26; 80048; 80053; 83690; 85025; 86140; 86677; 96361; 96374; 96375; 96376; 99284; 99285-25; A9270-GY; J1170; J1650; J1885; J2405; J2550; J2765; J7040; J7042; J7050; Q9967